=== PATIENT | male | born 1960 | race Caucasian/White ===

== ENCOUNTER 2023-08-14 10:06 | Emergency (ER) | payer MEDICARE, MEDICAID, SELFPAY ==
--- NOTE | ~2023-08-14 | XR_ITS ---
EXAMINATION: XR CHEST CLINICAL INFORMATION: Productive cough. Had part of lung removed 6 months ago. Shortness of breath. COMPARISON: Chest x-ray 06/03/2018. TECHNIQUE: 2 views of the chest were obtained. FINDINGS: The cardiomediastinal silhouette is stable. The lungs are well expanded. Suture material is seen in the infrahilar region on the lateral view but is not well localized on the frontal view. There are thick-walled airways. No consolidation. No effusion or pneumothorax. Degenerative changes in the spine. XR/XR chest 2V IMPRESSION: Airways disease. No focal pneumonia. No effusion or pneumothorax.
[2023-08-14 10:15] VITALS: BP 135/75; PULSE 76; RESP 22; TEMP 36.7; O2SAT 94; BMI 35.4
--- NOTE | 2023-08-14 10:17 | ECG_ITS ---
Test Reason : chest pain Blood Pressure : / mmHG Vent. Rate : 066 BPM Atrial Rate : 066 BPM P-R Int : 172 ms QRS Dur : 080 ms QT Int : 384 ms P-R-T Axes : -01 036 026 degrees QTc Int : 402 ms Normal sinus rhythm Normal ECG When compared with ECG of 03-JUN-2018 08:41, No significant change was found Referred By: Generic ED Physician Electronically Signed By:KATHIA RAMON MD
[2023-08-14 10:48] LABS: MANUAL DIFF FLAG NO
[2023-08-14 10:50] LABS: Basophils Percent Auto 0.3 % (0-2); Eosinophils Absolute Auto 0.1 X10*3/uL (0.0-0.4); Eosinophils Percent Auto 0.7 % (0-4); Hematocrit 47.8 % (42.0-52.0); Hemoglobin 16.2 g/dl (14.0-18.0); Imm Gran Abs Auto 0.05 X10*3/uL (0.00-0.03); Imm Gran Pct Auto 0.5 % (0.0-0.4); Lymphocytes Absolute Auto 1.6 X10*3/uL (1.2-4.9); Lymphocytes Percent Auto 14.8 % (20-40); Mean Corpuscular HGB Conc 33.9 g/dl (31.0-36.0); Mean Corpuscular Hemoglobin 30.9 pg (27.0-33.0); Mean Platelet Volume 10.8 fL (9.4-12.4); Monocytes Absolute Auto 0.9 X10*3/uL (0.1-1.2); Monocytes Percent Auto 8.2 % (2-11); Neutrophils Absolute Auto 8.1 x10*3/uL (2.0-8.3); Neutrophils Percent Auto 75.5 % (45-73); Platelet Count 225 X10*3/uL (160-400); Red Blood Count 5.25 X10*6/uL (4.60-5.80); Red Cell Distribution Width 15.2 % (11.0-16.0); White Blood Count 10.8 X10*3/uL (4.8-10.8)
[2023-08-14 11:06] LABS: COVID-19 Test Negative (Negative); IDNOW Serial# BCCEAD1C
[2023-08-14 11:09] LABS: IDNOW Serial# 9DB6401D; Influenza A Negative (Negative); Influenza B2 Negative (Negative)
[2023-08-14 11:15] LABS: Alanine Aminotransferase 20 U/L (0-40); Albumin Level 4.4 g/dL (3.5-5.0); Alkaline Phosphatase 78 U/L (39-117); Anion Gap 16 (12-20); Aspartate Amino Transferase 24 U/L (5-37); Bilirubin Total 0.6 mg/dL (0.0-1.0); Blood Urea Nitrogen 11 mg/dL (9-16); Calcium 10.2 mg/dL (8.4-10.2); Carbon Dioxide 24 mmol/L (22-29); Chloride 106 mmol/L (96-108); Creatinine Clr Calc Pharmacy 102.3; Estimated Glomerular Filt Rate > 60; Glucose Random 113 mg/dL (60-115); Potassium 4.2 mmol/L (3.3-5.1); Sodium 142 mmol/L (135-145); Total Protein 7.7 g/dL (6.5-8.0)
--- NOTE | 2023-08-14 11:53 | ED_ITS ---
HPI - SOB/Dyspnea General Chief Complaint: Dyspnea Stated Complaint: Diff breathing/Sore throat Time Seen by Provider: 08/14/23 11:51 Source: patient Mode of arrival: ambulatory Limitations: no limitations History of Present Illness HPI Narrative: 63 yo male with history of lung cancer s/p resection in January at [facility], history of Crohn's disease s/p bowel resections who presents to the ER for evaluation of SOB, wheezing, productive cough for the last 3 days. He also noticed swollen lymph nodes on the right side of his neck and developed a sore throat. His is home with similar symptoms. No chest pain, difficulty breathing, N/V/D, abdominal pain or fevers. He is an active smoker and continues to smoke despite lung cancer hx and illness. MD elicited complaint: shortness of breath Pertinent past history: COPD (probable COPD (undx)) Onset (ago): day(s) (3) Context: recent illness Timing: progressively worsening Severity: moderate Exacerbating factors: exertion and coughing Relieving factors: rest Known history of: COPD Associated symptoms: cough, wheezing, sputum production (clear) and chest congestion Treatment prior to arrival: none Related Data Home oxygen amount: none Previous Rx's Medication Instructions Recorded albuterol sulfate 90 mcg/actuation 2 inh inhalation QID PRN shortness 08/14/23 aerosol inhaler of breath or wheezing #6.7 grams azithromycin 250 mg tablet See Rx Instructions PO .COMPLEX #6 08/14/23 (Zithromax Z-Sherman) tabs benzonatate 100 mg capsule 100 mg PO TID PRN cough #20 caps 08/14/23 prednisone 10 mg tablets in a dose See Taper PO DAILY #48 ea 08/14/23 pack Allergies Allergy/AdvReac Type Severity Reaction Status Date / Time No Known Allergies Allergy Verified 08/14/23 10:15 Review of Systems 2 Review of Systems: Yes all other systems are reviewed and are negative PMFSH Social History Social History Smoked in Last 30 Days: Yes Use of substances other than those prescribed or required for medical reasons: Yes Substance Use Type: Marijuana Advance Directives: No Advance Directives Information Provided: No Physical Exam 2 Vital Signs: Vital Signs: Last Vital Signs Temp 98.1 F 08/14/23 10:15 Pulse 84 08/14/23 12:43 Resp 18 08/14/23 12:43 BP 135/75 08/14/23 10:15 Pulse Ox 96 08/14/23 11:58 O2 Del Method Room Air 08/14/23 11:58 BMI result Body Mass Index 35.4 Appearance: Alert. Oriented X3. No acute distress. Head: normocephalic, atraumatic. Eyes: Pupils equal, round and reactive to light. ENT: Pharynx with No tonsillar swelling or exudate. Neck: large neck habitus w/ fullness, +LAD in the right submadibular area, 1cm mobile, slightly tender. mild LAD in the left submandibular area as well. CVS: Normal heart rate and rhythm. Pulses normal. Respiratory: No respiratory distress. Breath sounds with mild end expiratory wheezing throughout, coarse cough. well healed surgical scars on the right lateral chest Abdomen: Soft and nontender. +BS x4. well healed surgical scars on the RUQ and RLQ Skin: Skin warm and dry. Normal skin color. Normal skin turgor. No rashes. Extremities: No lower extremity edema. No joint swelling. No calf swelling or tenderness. Neuro/psych: Oriented X 3. No motor deficit. No sensory deficit. CN II-XII intact. Normal speech and cognition. Medications Administered Discontinued Medications Generic Name Dose Route Start Last Admin Trade Name Freq PRN Reason Stop Dose Admin Acetaminophen 975 mg 08/14/23 12:25 08/14/23 12:47 Acetaminophen 325 Mg Tablet PO 08/14/23 12:26 975 mg ONCE ONE Administration Albuterol/Ipratropium 3 ml 08/14/23 12:39 08/14/23 12:42 Albuterol/Iprat 2.5/0.5mg 3 Ml Ampul.Neb INHALE 08/14/23 12:40 3 ml ONCE ONE Administration Prednisone 60 mg 08/14/23 12:10 08/14/23 12:23 Prednisone 20 Mg Tablet PO 08/14/23 12:11 60 mg ONCE ONE Administration Medical Decision Making Medical Decision Making MDM Narrative: 63 yo male with history of lung cancer s/p resection in January at [facility], history of Crohn's disease s/p bowel resections who presents to the ER for evaluation of SOB, wheezing, productive cough for the last 3 days. +sick contacts at home. VSS on arrival. wheezing throughout all lung maldonado but no distress and speaking in complete sentences. likely undiagnosed COPD given his extensive smoking history. given duoneb and steroid with resolution of wheezing. cxr without PNA or edema. labs reassuring, no leukocytosis. negative for covid, flu, strep and mono will treat for acute bronchitis, stable for d/c home. encouraged f/u with oncology and PCP if lymphadenopathy did not resolve w/ acute illness Differential Diagnosis Differential Diagnoses: The differential diagnosis associated with the presentation includes strep, covid, flu, rsv, other viral syndrome, bronchitis, pneumonia, mono, no evidence of peritonsillar abcsess or retropharyngeal abscess. doubt PE given other symptoms Admission/Observation Consideration of admission/observation: Escalation of care including admission/observation considered lung cancer patient w/ sob and wheezing, considered obs on arrival. improved w/ treatment Lab Data MDM Lab Attestation statement: I reviewed the patient's lab results. no leukocytosis 08/14/23 10:40 08/14/23 10:40 Labs: Lab Results 08/14/23 08/14/23 Range/Units 10:40 12:46 WBC 10.8 (4.8-10.8) X10*3/uL RBC 5.25 (4.60-5.80) X10*6/uL Hgb 16.2 (14.0-18.0) g/dl Hct 47.8 (42.0-52.0) % MCV 91.0 (80.0-98.0) fL MCH 30.9 (27.0-33.0) pg MCHC 33.9 (31.0-36.0) g/dl RDW 15.2 (11.0-16.0) % Plt Count 225 (160-400) X10*3/uL MPV 10.8 (9.4-12.4) fL Immature Gran % (Auto) 0.5 H (0.0-0.4) % Neut % (Auto) 75.5 H (45-73) % Lymph % (Auto) 14.8 L (20-40) % Bent % (Auto) 8.2 (2-11) % Eos % (Auto) 0.7 (0-4) % Baso % (Auto) 0.3 (0-2) % Lymph # (Auto) 1.6 (1.2-4.9) X10*3/uL Bent # (Auto) 0.9 (0.1-1.2) X10*3/uL Eos # (Auto) 0.1 (0.0-0.4) X10*3/uL Baso # (Auto) 0.0 (0.0-0.2) X10*3/uL Abs Immat Gran (auto) 0.05 H (0.00-0.03) X10*3/uL Absolute Neuts (auto) 8.1 (2.0-8.3) x10*3/uL Absolute Nucleated RBC 0.000 (0.0-0.012) X10*3/uL Nucleated RBC % (auto) 0.0 (0.0-0.2) /100WBC Sodium 142 (135-145) mmol/L Potassium 4.2 (3.3-5.1) mmol/L Chloride 106 (96-108) mmol/L Carbon Dioxide 24 (22-29) mmol/L Anion Gap 16 (12-20) BUN 11 (9-16) mg/dL Creatinine 0.87 (0.5-1.4) mg/dL Estim Creat Clear Calc 102.3 Estimated GFR > 60 Random Glucose 113 (60-115) mg/dL Calcium 10.2 (8.4-10.2) mg/dL Total Bilirubin 0.6 (0.0-1.0) mg/dL AST 24 (5-37) U/L ALT 20 (0-40) U/L Alkaline Phosphatase 78 (39-117) U/L Total Protein 7.7 (6.5-8.0) g/dL Albumin 4.4 (3.5-5.0) g/dL COVID-19 (SYNDEY) Negative (Negative) COVID-19 Clin Com See Note Monoscreen Negative (Negative) Influenza Type A (BLU) Negative (Negative) Influenza Type B (BLU) Negative (Negative) Influenza A & B Note See Note S. pyogenes GrpA BLU Negative (Negative) Independent Interpretation I performed an independent interpretation of an: EKG and Plain X-Ray Interpretation: cxr without focal pna, post surgical changes in the right lung ekg w/ normal sinus rhythm, HR 66 bpm, no st segment elevations or depressions, no change from prior Radiology Impression Discussion of test interpretation with radiology: I have reviewed the radiologist's reading. Radiologist Impression: EXAMINATION: XR CHEST CLINICAL INFORMATION: Productive cough. Had part of lung removed 6 months ago. Shortness of breath. COMPARISON: Chest x-ray 06/03/2018. TECHNIQUE: 2 views of the chest were obtained. FINDINGS: The cardiomediastinal silhouette is stable. The lungs are well expanded. Suture material is seen in the infrahilar region on the lateral view but is not well localized on the frontal view. There are thick-walled airways. No consolidation. No effusion or pneumothorax. Degenerative changes in the spine. XR/XR chest 2V IMPRESSION: Airways disease. No focal pneumonia. No effusion or pneumothorax. Prescription Management I considered prescription management with: Antibiotic and Other (prednisone, albuterol) Chronic Conditions Patient?s care impacted by: Other (lung cancer, crohn's) Critical Care Time Critical Care Time Critical Care Time: No Discharge Plan Discharge Clinical Impression: Acute bronchitis Qualifiers: Bronchitis organism: unspecified organism Qualified Code(s): J20.9 - Acute bronchitis, unspecified Patient Disposition: Home, Self-Care Instructions: Acute Bronchitis (ED) Additional Instructions: Your lab workup today was reassuring. You tested negative for COVID, Flu and Strep throat. Your chest x-ray did not show any evidence of pneumonia. Take the prescribed prednisone taper as directed, complete the entire course. start it tomorrow. 1st dose given in the ER today Take the prescribed antibiotics as directed, complete the entire course and do not miss any doses. it will help with inflammation in your lungs Use the inhaler every 4 hours as needed for wheezing Take over the counter cold/flu medications as needed for your other symptoms If your lymph node swelling does not resolve once you are better, recommend following up with your oncologist If you develop new or worsening symptoms call 911 or come back to the ER for further evaluation. Prescriptions: New prednisone 10 mg tablets,dose pack See Taper PO DAILY Qty: 48 0RF Taper: Prednisone 40 mg daily for 3 Days and 0 Hour 30 mg daily for 3 Days and 0 Hour 20 mg daily for 3 Days and 0 Hour 10 mg daily for 3 Days and 0 Hour albuterol sulfate 90 mcg/actuation HFA aerosol inhaler 2 inh inhalation QID PRN (Reason: shortness of breath or wheezing) Qty: 6.7 0RF benzonatate 100 mg capsule 100 mg PO TID PRN (Reason: cough) Qty: 20 0RF azithromycin [Zithromax Z-Sherman] 250 mg tablet See Rx Instructions PO .COMPLEX Qty: 6 0RF Rx Instructions: take 500 mg today (day 1), then 250 mg for 4 days (days 2-5) Referrals: John Szymanski MD [Primary Care Provider] -
[2023-08-14 11:58] VITALS: RESP 18; O2SAT 96
--- NOTE | 2023-08-14 12:02 | PC.NURSE ---
Patient arrived from home with complaints of SOB and sore throat x 3 days. Reports hx of lung CA with collapsed lung after biopsy. Reports had large part of right lung was removed because of CA. Reports chest pressure but not pain that comes and goes.
[2023-08-14] MEDS: predniSONE 20 MG TABLET 60 MG PO (12:23)
[2023-08-14] MEDS: Albuterol/Iprat 2.5/0.5MG 3 ML AMPUL.NEB INHALE (12:42)
[2023-08-14 12:43] VITALS: PULSE 84; RESP 18; O2SAT 96
[2023-08-14] MEDS: Acetaminophen 325 MG TABLET 975 MG PO (12:47)
--- NOTE | 2023-08-14 13:02 | PC.NURSE ---
Medicated for complaints of headache, reports improvement in breathing after updraft treatment
[2023-08-14 13:07] LABS: IDNOW Serial# 08D9AD1C; Strep A Nucleic Acid Negative (Negative)
[2023-08-14 13:30] LABS: Monotest Negative (Negative)
--- NOTE | 2023-08-14 14:16 | PC.NURSE ---
Discharge plan reviewed with patient who verbalized understanding
== END 2023-08-14 14:15 | disposition home or self-care (01) ==
PROVIDERS: Physician Assistant; Emergency Provider Emergency Medicine; PCP Internal Medicine
DX: J20.9 Acute bronchitis, unspecified (principal); R06.02 Shortness of breath; R05.9 Cough, unspecified; R09.89 Other specified symptoms and signs involving the circulatory and respiratory systems; Z11.52 Encounter for screening for COVID-19; Z20.822 Contact with and (suspected) exposure to COVID-19; Z79.899 Other long term (current) drug therapy
CPT/HCPCS: 71046; 80053; 85025; 86308; 87502; 87635; 87651; 93005; 94640; 99284; 99285